=== PATIENT | male | born 2000 | race Caucasian/White ===

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

== ENCOUNTER 2021-10-15 00:45 | Emergency (ER) | payer SELFPAY ==
[~2021-10-15] VITALS: Ht 162.6 cm; Wt 55.7 kg
[2021-10-15 01:26] VITALS: TEMP 98.3
[2021-10-15 03:25] VITALS: BP 112/88; PULSE 95
== END 2021-10-15 03:26 | disposition home or self-care (01) ==
LOC: COL.ER 00:45
DX: S05.11XA Contusion of eyeball and orbital tissues, right eye, initial encounter (principal); F17.210 Nicotine dependence, cigarettes, uncomplicated; Z28.310 Unvaccinated for COVID-19; X83.8XXA Intentional self-harm by other specified means, initial encounter

== ENCOUNTER 2021-10-30 03:36 | Emergency (ER) | payer SELFPAY ==
[~2021-10-30] VITALS: Ht 162.6 cm; Wt 57.3 kg
[2021-10-30 04:12] VITALS: BP 133/90; PULSE 75; TEMP 99
== END 2021-10-30 04:12 | disposition home or self-care (01) ==
LOC: COL.ER 03:36
DX: S62.316A Displaced fracture of base of fifth metacarpal bone, right hand, initial encounter for closed fracture (principal); F17.210 Nicotine dependence, cigarettes, uncomplicated; Z28.310 Unvaccinated for COVID-19; W22.01XA Walked into wall, initial encounter

== ENCOUNTER 2022-04-25 17:48 | Emergency (ER) | payer SELFPAY ==
[~2022-04-25] VITALS: Ht 162.6 cm; Wt 55.0 kg
[2022-04-25 18:57] LABS: COLLECTION METHOD CLEAN CATCH
[2022-04-25 19:16] LABS: URINE APPEARANCE Clear (CLEAR/HAZY); URINE BLOOD TRACE-INTACT (NEGATIVE); URINE COLOR Yellow (YELLOW); URINE GLUCOSE Negative (NEGATIVE); URINE KETONE Negative (NEGATIVE); URINE NITRATE Negative (NEGATIVE); URINE PROTEIN(semi-quant) Negative (NEGATIVE)
[2022-04-25 19:31] LABS: AMORPHOUS CRYSTAL Present (NOT PRESENT); MUCOUS Present (NOT PRESENT); SQUAMOUS EPITHELIAL None Seen /hpf (0-10); URINE BACTERIA None Seen /hpf (NONE SEEN); URINE RBC 0-2 /hpf (0-2)
[2022-04-25 20:30] VITALS: BP 122/98; PULSE 97; TEMP 98
== END 2022-04-25 20:51 | disposition short-term general hospital (02) ==
LOC: COL.ER 17:48
PROVIDERS: Emergency Medicine
DX: N50.811 Right testicular pain (principal); N39.0 Urinary tract infection, site not specified; Z28.310 Unvaccinated for COVID-19

== ENCOUNTER 2022-11-10 16:50 | Emergency (ER) | payer SELFPAY ==
[~2022-11-10] VITALS: Ht 162.6 cm; Wt 53.6 kg
[2022-11-10 16:57] VITALS: TEMP 98.9
[2022-11-10 17:48] LABS: BASO % 0.1 % (0.0-2.0); EOS # 0.1 K/mm3 (0.0-0.7); EOS % 0.7 % (0.0-4.0); GRAN % 74.6 % (42.2-75.2); HEMATOCRIT 49.7 % (42.0-52.0); HEMOGLOBIN 17.5 g/dl (13.5-18.0); LYMPH # 1.3 K/mm3 (1.2-3.4); MEAN CELL VOLUME 86 fl (80.0-100.0); MEAN CORPUSCULAR HEMOGLOBIN 30 pg (27-31); MEAN CORPUSCULAR HGB CONC 35 g/dl (33.0-37.0); MEAN PLATELET VOLUME 9.1 fl (7.4-10.4); MONO # 0.7 K/mm3 (0.1-0.6); MONO % 8.4 % (1.7-9.3); PLATELET COUNT 229 K/mm3 (130-400); RED BLOOD COUNT 5.76 M/mm3 (4.20-5.60); REDCELL DISTRIBUTION WIDTH-CV 12.8 % (11.5-14.5)
[2022-11-10 17:55] LABS: COLLECTION METHOD CLEAN CATCH
[2022-11-10 18:02] LABS: ALANINE AMINOTRANSFERASE 45 U/L (0-55); ALBUMIN 4.6 gm/dL (3.5-5.0); ALKALINE PHOSPHATASE 55 U/L (40-150); ANION GAP 10 mmol/L (7-16); AST,SGOT 20 U/L (5-34); BILIRUBIN,TOTAL 2.1 mg/dL (0.2-1.2); BLOOD UREA NITROGEN 16 mg/dL (9-21); CARBON DIOXIDE 25 mmol/L (22-29); CHLORIDE 106 mmol/L (98-107); CREATININE, serum 1.15 mg/dL (0.72-1.25); GLUCOSE 94 mg/dL (70-99); POTASSIUM 4.3 mmol/L (3.5-4.5); SODIUM 141 mmol/L (136-145); TOTAL PROTEIN 7.2 gm/dL (6.2-8.1)
[2022-11-10 18:04] LABS: ACETAMINOPHEN < 1.0 ug/mL (10-30); ALCOHOL(ethanol),MEDICAL < 10 mg/dL (0-10); SALICYLATE < 5.0 mg/dL (15.0-30.0)
[2022-11-10 18:14] LABS: TRICYCLIC ANTIDEPRESS URINE NEGATIVE
[2022-11-10 18:18] LABS: PH 7.5 (5.0-8.5); URINE APPEARANCE Clear (CLEAR/HAZY); URINE BLOOD Negative (NEGATIVE); URINE COLOR Yellow (YELLOW); URINE GLUCOSE Negative (NEGATIVE); URINE KETONE Negative (NEGATIVE); URINE NITRATE Negative (NEGATIVE); URINE PROTEIN(semi-quant) Negative (NEGATIVE)
[2022-11-10 18:19] LABS: MUCOUS Present (NOT PRESENT); SQUAMOUS EPITHELIAL None Seen /hpf (0-10); URINE BACTERIA None Seen /hpf (NONE SEEN); URINE RBC 0-2 /hpf (0-2)
[2022-11-10 20:36] VITALS: BP 146/75; PULSE 81
== END 2022-11-10 20:36 | disposition home or self-care (01) ==
LOC: COL.ER 16:50
PROVIDERS: Emergency Medicine
DX: R45.88 Nonsuicidal self-harm (principal); F17.210 Nicotine dependence, cigarettes, uncomplicated; Z28.310 Unvaccinated for COVID-19